=== PATIENT | male | born 1955 | race Caucasian/White ===

== ENCOUNTER 2018-11-11 06:49 | Day surgery (SDC) | payer OTHER ==
[~2018-11-11] VITALS: Ht 175.3 cm; Wt 87.9 kg
[2018-11-11] VITALS (14 sets, daily range): BP systolic 110–133; BP diastolic 65–94; PULSE 65–76; RESP 14–20; Ht 175.3 cm; Wt 87.9 kg
[~2018-11-11 06:49] MED LIST: ATEN50TA PO; CEFAZOLIN 2 GM/50 ML (PMX) 50 ML IVPB ONE; DIVA-73 PO; LISI-471 PO; OMEP20CA16 PO; QUET200T PO; SIMV20TA PO; SOD CHLORIDE 0.9% 1,000 ML IV SCH
[2018-11-11] MEDS ORDERED: BUPIVACAINE 0.25% (MPF) 30 ML INJ ONE (10:09)
[2018-11-11] MEDS ORDERED: LIDOCAINE 2% (MDV) 20 ML INJ ONE (10:09)
[2018-11-11] MEDS ORDERED: BUPIVACAINE 0.5% (SDV) 30 ML INJ ONE (10:09)
[2018-11-11] MEDS ORDERED: DIPHENHYDRAMINE 50 MG INJ IV PRN (10:30)
[2018-11-11] MEDS ORDERED: LORAZEPAM 2 MG INJ IV PRN (10:30)
[2018-11-11] MEDS ORDERED: hydrALAzine 20 MG INJ IV PRN (10:30)
[2018-11-11] MEDS ORDERED: MIDAZOLAM 1 MG/ML 2 ML INJ IV PRN (10:30)
[2018-11-11] MEDS ORDERED: LABETALOL HCL 20MG INJ IV PRN (10:30)
[2018-11-11] MEDS ORDERED: ONDANSETRON 4 MG INJ IV PRN (10:30)
[2018-11-11] MEDS ORDERED: PROCHLORPERAZINE 10 MG INJ IV PRN (10:30)
[2018-11-11] MEDS ORDERED: PROPOFOL 20 ML ONE (10:31)
[2018-11-11] MEDS ORDERED: MIDAZOLAM 1 MG/ML 2 ML INJ ONE (10:31)
[2018-11-11] MEDS ORDERED: ROCURONIUM 50 MG INJ ONE (10:31)
[2018-11-11] MEDS ORDERED: FENTAnyl 50 MCG/ML VIAL ONE (10:31)
[2018-11-11] MEDS ORDERED: LIDOCAINE 1% (MDV) 20 ML INJ ONE (10:32)
[2018-11-11] MEDS ORDERED: CEFAZOLIN 1 GM INJ ONE (10:41)
[2018-11-11] MEDS ORDERED: LABETALOL HCL 20MG INJ ONE (10:43)
[2018-11-11] MEDS ORDERED: KETOROLAC 30 MG INJ ONE (10:46)
[2018-11-11] MEDS ORDERED: IBUPROFEN 800 MG TAB PO ONE (11:30)
== END 2018-11-11 12:53 | disposition home or self-care (01) ==
LOC: SDS 06:49
PROVIDERS: ATTEND Surgery
DX: L72.0 Epidermal cyst (principal); I10 Essential (primary) hypertension; E11.9 Type 2 diabetes mellitus without complications; F17.200 Nicotine dependence, unspecified, uncomplicated
CPT/HCPCS: 88307; J0690; J1885; J2250; J3010